=== PATIENT | male | born 1975 | race Hispanic/Latino ===

== ENCOUNTER 2020-10-22 08:56 | Emergency (ER) | payer OTHER, SELFPAY ==
[2020-10-22] VITALS (60 sets, daily range): BP systolic 98–128; BP diastolic 64–88; PULSE 88–123; RESP 16–28; TEMP 36.3–37.4; O2SAT 97–100
--- NOTE | ~2020-10-22 | US_ITS ---
EXAMINATION: US right upper quadrant DATE: 10/22/2020 11:02 INDICATION: Abdominal pain TECHNIQUE: Multiple grayscale and Doppler ultrasound images of the abdomen were obtained. COMPARISON: None available FINDINGS: Bowel gas obscures visualization of the pancreas. The liver is heterogeneous in appearance. No surface nodularity. Normal hepatopetal flow in the main portal vein. The gallbladder is ill-defin ed but appears to contain stones. No pericholecystic fluid is identified. The normal common bile duct measures 3 mm. Sonographic Diaz sign is present. IMPRESSION: 1. Ill-defined gallbladder with possible stones and heterogeneous appearance to the liver. Findings c ould reflect cholecystitis with possible liver abscess. Recommend correlation with CT with contrast w hich is pending. Reviewed, dictated and finalized at location B. IMPRESSION: 1. Ill-defined gallbladder with possible stones and heterogeneous appearance to the liver. Findings could reflect cholecystitis with possible liver abscess. R ecommend correlation with CT with contrast which is pending.
--- NOTE | ~2020-10-22 | CT_ITS ---
EXAMINATION: CT abdomen pelvis w con DATE: 10/22/2020 11:14 INDICATION: Abdominal pain. TECHNIQUE: Computed tomography (CT) of the abdomen and pelvis was performed with 100 mL Omnipaque 350 intravenous contrast. Automated exposure control and iterative reconstruction technique were employe d. The dose-length product was 236.96 mGy-cm. COMPARISON: Ultrasound abdomen 10/22/2020 FINDINGS: The visualized portions of the lung bases demonstrate mild atelectasis. No pleural effusion . The heart size is normal. No pericardial effusion. The gallbladder is dilated to 11.4 x 7.5 cm with gallstones, lobulated wall, and wall thickening. There is a multiloculated cystic mass in the adjace nt liver, consistent with abscess. The liver abscess measures 12.4 x 10.8 cm. There are small areas o f abscess at the undersurface of the liver. There is a small volume of perihepatic and pelvic ascites . The pancreas, adrenal glands, and kidneys are normal. There are calcifications in a urachal remnan t at the anterosuperior aspect of the bladder. There are no dilated loops of bowel. The appendix is n ormal. There are no pathologically enlarged lymph nodes. There is mild thoracolumbar spondylosis. IMPRESSION: 1. Gangrenous acute cholecystitis with large liver abscess and small volume of ascites. I called this result to Dr. Bullard. Reviewed, dictated and finalized at location A.
[2020-10-22 09:34] LABS: Basophils Percent Auto 0.2 % (0.2-1.2); Eosinophils Percent Auto 0.2 % (0-4.4); Immature Granulocyte Absolute 0.23 K/mm3 (0.00-0.031); Immature Granulocyte Percent A 1.7 % (0-0.5); Lymphocytes Percent Auto 13.6 % (18.3-44.2); Mean Corpuscular HGB Conc 26.2 g/dl (32-36); Mean Corpuscular Hemoglobin 23.5 pg (26-34); Mean Corpuscular Volume 89.7 fl (80-100); Mean Platelet Volume 9.7 fl (7.4-10.4); Monocytes Absolute Auto 0.9 K/mm3 (0.1-0.6); Monocytes Percent Auto 6.6 % (2.6-8.5); Neutrophils Absolute Auto 10.3 K/mm3 (1.3-6.7); Neutrophils Percent Auto 77.7 % (45.5-73.1); Nucleated Red Blood Cells Absolute Auto 0.2 K/mm3 (0.0-0.012); Nucleated Red Blood Cells Perc 1.4 % (0.0-0.2); Platelet Count Result 496 k/mm3 (150-375); Red Blood Count 2.04 M/mm3 (4.6-6.20); Red Cell Distribution Width 29.8 % (11.5-14.5); White Blood Count 13.3 K/mm3 (4.5-10.0)
[2020-10-22 09:36] LABS: Hemoglobin 4.8 g/dL (14.0-18.0)
[2020-10-22 09:37] LABS: Hematocrit 18.3 % (42.0-52.0)
[2020-10-22 09:54] LABS: Alanine Aminotransferase 62 U/L (4-50); Alkaline Phosphatase 271 U/L (38-126); Anion Gap 11 mmol/L (8-16); Aspartate Amino Transferase 78 U/L (17-59); Bilirubin,Total 2.1 mg/dL (0.2-1.3); Blood Urea Nitrogen 6 mg/dL (9-20); Calcium 8.9 mg/dL (8.4-10.2); Carbon Dioxide 24 mmol/L (22-30); Chloride 94 mmol/L (98-107); Estimated Glomerular Filt Rate > 60; Glucose 120 mg/dL (65-110); Lipase 62 U/L (23-300); Potassium 3.5 mmol/L (3.4-5.0); Sodium 129 mmol/L (137-145)
[2020-10-22 10:02] LABS: Platelet Estimate Increased (Adequate)
[2020-10-22 10:03] LABS: Hypochromasia 2+ (NORMAL)
[2020-10-22 10:06] LABS: Add Urine Microscopic? YES; Appearance Urine Clear (Clear); Bacteria Urine Trace /hpf; Bilirubin Urine Negative (Negative); Blood Urine Negative (Negative); Color Urine Yellow (Yellow); Glucose Urine UA Negative (Negative); Ketones Urine Negative (Negative); Leukocyte Esterase Ur Negative LEU/UL (Negative); Nitrate Urine Negative (Negative); Protein Urine Negative (Negative); RBC Urine 0-2 /hpf (0-2); Specific Grav Ur 1.009 (1.001-1.035); WBC Urine 0-3 /hpf
--- NOTE | 2020-10-22 10:28 | ED.ABDPAIN ---
HPI - Abdominal Pain General Chief Complaint: Abdominal Pain Stated Complaint: Abd pain Time Seen by Provider: 10/22/20 10:07 History of Present Illness HPI narrative: Patient presents with 1 month of abdominal pain. Pain is achy, constant, no radiation no clear aggravating or alleviating factors. Patient receives been seen twice at other facilities for the symptoms and they were concerned about his liver he also reports he is required prior blood transfusions. Patient denies any nausea or vomiting he denies any diarrhea blood melena or bile in his stool. He denies any fevers reports a significant history of alcohol use approximately 8-10 beers a day but he stopped a couple months ago Related Data Home Medications Medication Instructions Recorded Confirmed No Home Medications 10/22/20 10/22/20 Allergies Allergy/AdvReac Type Severity Reaction Status Date / Time No Known Allergies Allergy Verified 10/22/20 18:09 Review of Systems Review of Systems: CONSTITUTIONAL: Denies fever, chills, or sweats. EYES: Denies visual changes, redness, or discharge. ENT: Denies rhinorrhea, congestion, sore throat, or otalgia. CARDIOVASCULAR: Denies chest pain, palpitations, or edema. RESPIRATORY: Denies cough or dyspnea. GASTROINTESTINAL: Denies nausea, vomiting, or diarrhea. GENITOURINARY: Denies dysuria or hematuria. SKIN: Denies rash or itching. MUSCULOSKELETAL: Denies back pain, joint pain, or myalgia. NEUROLOGIC: Denies headache, numbness, dizziness, or weakness. PSYCHIATRIC: Denies anxiety or depression. All systems reviewed & are unremarkable except as noted in HPI and below Exam Narrative: GENERAL: Well-appearing, well-nourished, and in no acute distress. HEAD: Normocephalic, atraumatic. EYES: PERRLA and EOMI. ENT: Nares clear, no rhinorrhea or epistaxis. Mucous membranes moist. NECK: Supple. No masses. No JVD CHEST: Clear to auscultation. No respiratory distress. No wheezes rales or rhonchi HEART: Regular rate and rhythm. No murmur heard. Normal peripheral pulses. ABDOMEN: Soft mild distention tenderness predominantly in the right upper quadrant, normal active bowel sounds. EXTREMITIES: Normal range of motion. No edema. SKIN: Warm, dry, no rash. Mild jaundice NEURO: No focal deficits. Alert and oriented x3. PSYCH: Normal mood and affect. Course Reevaluation(s) Reevaluation #1: PT is resting comfortably tachycardia is responding to pRBC. Pending retun call from [facility]. Initial consultation recommendation was for 3 units of blood and repeat H/H. Pt 2nd unit is starting now. . REctal exam performed. no BRBPR, no Melena, Fecal occutl is negative. Nursing retail and promotions coordinator was present for the exam Date: 10/22/20 Time: 15:50 Consultations Consultation #1: Radiology called wwith CT results. Consuls placed to Surgery and IR Date: 10/22/20 Time: 11:37 Consultation #2: Pending Surgical recommendations Date: 10/22/20 Time: 12:40 Consultation #3: Surgical team recommend transfer to tertiary care center given the complex imaging findings. Pt reevaluated and made aware for recommendations will start to coordinate transfer of care Date: 10/22/20 Time: 13:03 Additional Consultation(s): 6338: Contacted [facility] for return phone call(Dr. Egan) On be half to Dr. Jesus will accept for transfer. Vital Signs Vital signs: Vital Signs Temperature 36.3 C L 10/22/20 09:10 Pulse Rate 123 H 10/22/20 09:10 Respiratory Rate 16 10/22/20 09:10 Blood Pressure 121/64 10/22/20 09:10 Pulse Oximetry 100 10/22/20 09:10 Temperature 37.2 C 10/22/20 20:00 Pulse Rate 100 10/22/20 20:00 Respiratory Rate 25 H 10/22/20 20:00 Blood Pressure 114/84 10/22/20 20:00 Pulse Oximetry 100 10/22/20 20:00 MDM - Abdominal Pain MDM Narrative Medical decision making narrative: Patient presented with 1 month of right upper quadrant abdominal pain overall patient looks clinically well his exam was acutely tender in the right upper quadrant
--- NOTE | 2020-10-22 11:26 | ECG_ITS ---
Measurements Intervals [place] Rate: 108 P: 34 SD: 120 QRS: 20 QRSD: 92 T: 34 QT: 332 QTc: 445 Interpretive Statements SINUS TACHYCARDIA ABNORMAL ECG Electronically Signed On 10-22-2020 12:29:23 CDT by Ignacio Joyner D.O.
[2020-10-22 11:48] LABS: INR 1.1; Prothrombin Time 13.7 Seconds (11.1-14.7)
[2020-10-22 11:49] LABS: Partial Thromboplastin Time 40.2 SECONDS (22.3-36.8)
[2020-10-22 11:56] LABS: Acetaminophen < 10 ug/mL (10-30); Ammonia < 9 umol/L (9-30); Ethanol < 10 mg/dL (<10)
[2020-10-22 12:53] LABS: Erythrocyte Sedimentation Rate > 140 mm/hr (0-20)
[2020-10-22 13:03] LABS: Folic Acid 11.8 ng/mL (2.76->20)
[2020-10-22] MEDS: fentaNYL CITRATE INJ (*CRX) 100 MCG/2 ML VIAL 25 MCG IV PUSH (13:29)
[2020-10-22 13:36] LABS: Thyroid Stimulating Hormone Reflex 0.991 uIU/mL (0.465-4.68)
[2020-10-22 13:50] LABS: Iron 23 ug/dL (49-181)
[2020-10-22] MEDS: SODIUM CHLORIDE 0.9% IV 250 ML 30 ML IV CONT (14:01)
[2020-10-22] MEDS: TUBING, BLOOD SET 1 EACH XX (14:02)
[2020-10-22 14:03] LABS: Percent Iron Saturation 7 % (20-50)
[2020-10-22 14:25] LABS: Lactic Acid Reflex 0.8 mmol/L (0.7-2.1)
[2020-10-22 14:31] LABS: Amphetamine Screen Urine Negative (Negative); Barbiturate Screen Urine Negative (Negative); Benzodiazepines Screen Urine Negative (Negative); Cannabinoid Screen Urine Negative (Negative); Cocaine Screen Urine Negative (Negative); Methadone Screen Urine Negative (Negative); Opiate Screen Urine Negative (Negative); Phencyclidine Screen Urine Negative (Negative)
[2020-10-22 14:57] LABS: Hemoglobin 4.4 g/dL (14.0-18.0)
[2020-10-22 16:58] LABS: CRP 21.5 mg/dL (<1.0)
--- NOTE | 2020-10-22 17:08 | PC.NURSE ---
Report from Beatrice METZ. Assumed care of pt at this time.
[2020-10-22] MEDS: MORPHINE SULFATE (*CRX) 4 MG/ML INJ IV PUSH (17:29)
[2020-10-22 17:32] LABS: Basophils Percent Auto 0.3 % (0.2-1.2); Hematocrit 25.1 % (42.0-52.0); Hemoglobin 7.5 g/dL (14.0-18.0); Immature Granulocyte Absolute 0.16 K/mm3 (0.00-0.031); Immature Granulocyte Percent A 1.4 % (0-0.5); Lymphocytes Absolute Auto 0.99 K/mm3 (0.9-3.2); Lymphocytes Percent Auto 8.5 % (18.3-44.2); Mean Corpuscular HGB Conc 29.9 g/dl (32-36); Mean Corpuscular Hemoglobin 25.7 pg (26-34); Mean Platelet Volume 9.5 fl (7.4-10.4); Monocytes Percent Auto 8.1 % (2.6-8.5); Neutrophils Absolute Auto 9.5 K/mm3 (1.3-6.7); Neutrophils Percent Auto 81.7 % (45.5-73.1); Nucleated Red Blood Cells Absolute Auto 0.2 K/mm3 (0.0-0.012); Nucleated Red Blood Cells Perc 1.7 % (0.0-0.2); Platelet Count Result 363 k/mm3 (150-375); Red Blood Count 2.92 M/mm3 (4.6-6.20); Red Cell Distribution Width 21.1 % (11.5-14.5); White Blood Count 11.7 K/mm3 (4.5-10.0)
[2020-10-22 17:39] LABS: Hepatitis B Core IgM Result Negative (Negative); Hepatitis B Surface Antigen Negative (Negative)
[2020-10-22 17:48] LABS: Hepatitis B Surface Anti Res Negative
[2020-10-22 17:49] LABS: Anisocytosis 3+ (NORMAL); Hypochromasia 2+ (NORMAL); Platelet Estimate Adequate (Adequate)
[2020-10-22 17:50] LABS: Polychromasia 1+ (NORMAL)
[2020-10-22 17:55] LABS: Hepatitis C Virus Antibody Negative (Negative)
--- NOTE | 2020-10-22 19:20 | PC.NURSE ---
Assumed care of pt. at this time. Report from LASHAY Diaz
--- NOTE | 2020-10-22 20:00 | PC.NURSE ---
made contact with [facility] to transfer pt to [place]. [facility] declined [facility] accepted and is on [address]. ETA 10 minutes. [facility] has arrived and is aware [place] [id number]
--- NOTE | 2020-10-22 20:01 | PC.NURSE ---
Pt. accepted at [facility]. Room #[id number]
[2020-10-25 15:30] LABS: Hepatitis C Viral RNA PCR <15 IU/mL
[2020-10-25 18:45] LABS: Hepatitis B Core Ab Total Nonreactive (Nonreactive)
== END 2020-10-22 20:14 | disposition short-term general hospital (02) ==
PROVIDERS: Emergency Medicine; Emergency Provider Emergency Medicine
DX: K75.0 Abscess of liver (principal); K81.0 Acute cholecystitis; D64.9 Anemia, unspecified; D72.829 Elevated white blood cell count, unspecified; R00.0 Tachycardia, unspecified
CPT/HCPCS: 36415; 36430; 74177; 76705; 80053; 80307; 81001; 82140; 82607; 82728; 82746; 83540; 83550; 83605; 83690; 84443; 85014; 85018; 85025; 85610; 85652; 85730; 86140; 86704; 86705; 86706; 86803; 86850; 86900; 86901; 86920; 87340; 87522; 93005; 96361; 96365; 96366; 96375; 99285; J2270; J2543; J3010; J7050; P9016; Q9967